=== PATIENT | male | born 1965 | race Two or more races ===

== ENCOUNTER 2025-01-17 10:30 | Outpatient (RCR) | payer MEDICAID, SELFPAY ==
--- NOTE | 2025-01-11 10:16 | PTNOTE_ITS ---
PT OP Initial Eval Patient Information Outpatient Physical Therapy Treatment Date: 01/11/25 Visit Reasons: Absence of RT leg above knee Medical Diagnosis: Z97.13 Z89.611 Treatment Dx #1: Gait abnormality Treatment Dx #2: Balance impairment Start of Care: 01/11/25 Date of Onset: 01/2024 Smoking Status Smoking Status: Never smoker Initial Assessment Subjective: Pt is 59 yr old macedonian speaking male s/p R above knee amputation presents ambulating with articulating knee and B axillary crutches. Pt reports decreased balance and difficulty ambulating more than 30 mins. PMH: DM type 2 Pt goal: to walk better without crutches Objective: R hip strength: Flexion: 4/5 Abduction: 4/5 Gait: step through with forward trunk flexion and he locks the knee into extension, poor weight shift to R, decreased stance time on R Assessment: Pt presents with decreased WB and weight shifting and stance time on R with crutches. He can ambulate in parallel bars with hands on bars and he gets to mid stance with R foot and then quickly advances the L to avoid the knee from flexing. The knee prosthesis articulates and he doesn't trust it to stand extended in stance phase. He may benefit from a slower flexion or more resistance into flexion adjustment of the prosthesis. If he locks it into extension he vaults the LE on the R to clear the foot. Pt requires skilled therapy to meet goals and has good rehab potential. Short Term and Shelter Goals 1. Ind with HEP 2. Pt will ambulate with cane and good balance and weight shifting to the R LE x community distances 3. Pt will ambulate with almost symmetrical stance time and step length R/L x100' Treatment Plan ? 1. Manual therapy ? 2. Therex ? 3. Modalities as indicated, moist heat, ice, estim Frequency and Duration: 2x a week for 12 sessions plus the evaluation. We will need provider's signature on this evaluation and more authorized visits to continue with therapy past the 4 visits that were authorized. Certification Dates: 01/11/25 to 04/11/25 Procedure Charges OP PT Eval Mod Complex 30 minutes: Yes
--- NOTE | 2025-01-17 13:42 | PT.ODAYNRPT ---
PT Outpatient Daily Note OP Daily Note Outpatient Physical Therapy Treatment Date: 01/17/25 Visit Reasons: Absence of RT leg above knee Subjective: Pt reports he is doing well and is now ambulating with bilateral lofstrand crutches. Objective: See F/S for therex performed Assessment: Demo'd good tolerance with weight shifts laterally, forward/backward, and in staggered stance. Performed best with mirror feedback due to Lt lateral lean as he was not weight bearing through Rt prosthetic LE. Required mod vc's and tc's to Rt hip to weight shift through prosthetic LE while ambulating. Plan: Continue with POC Procedure Charges Therapeutic Exercise 30 minutes: Yes
== END 2025-01-17 23:59 | disposition home or self-care (01) ==
LOC: CPTX 10:30
PROVIDERS: PCP Physician Assistant; Referring Provider Physician Assistant; Visit Provider Physician Assistant
DX: R26.2 Difficulty in walking, not elsewhere classified (principal); R26.89 Other abnormalities of gait and mobility; Z89.611 Acquired absence of right leg above knee; Z97.13 Presence of artificial right leg (complete) (partial); E11.9 Type 2 diabetes mellitus without complications
CPT/HCPCS: 97110; 97162

== ENCOUNTER 2025-01-30 09:30 | Outpatient (RCR) | payer MEDICAID, SELFPAY ==
--- NOTE | 2025-01-19 11:06 | PT.ODAYNRPT ---
PT Outpatient Daily Note OP Daily Note Outpatient Physical Therapy Treatment Date: 01/19/25 Visit Reasons: above knee amputation Subjective: Pt arrived using one lofstrand crutch with L UE with left lateral lean, stating he has been trying to ambulate with one since yesterday. Reports he fell two days ago. Objective: See F/S for therex performed Assessment: Performed best with vc's and tc's to wt shift onto prosthetic limb before advancing sound limb; educated wt shift should come from hips and should avoid forward trunk lean. Improvement with wt sifts and gait with mirror to provide visual feedback with any trunk lean, pt able to self correct and return to midline. Advised to use 2 lofstrand crutches until balance and gait improve. Plan: Continue with POC Length of Time (minutes) of Treatment: 30 Minutes Procedure Charges Therapeutic Exercise 30 minutes: Yes
--- NOTE | 2025-01-24 18:03 | PT.ODAYNRPT ---
PT Outpatient Daily Note OP Daily Note Outpatient Physical Therapy Treatment Date: 01/24/25 Visit Reasons: above knee amputation Subjective: Ambulating with B Lofstrand crutches Objective: See f/S for therex Assessment: He ambulates with more stability and step length with the knee prosthesis locked in extension. Plan: Continue per POC Length of Time (minutes) of Treatment: 30 Minutes Procedure Charges Therapeutic Exercise 30 minutes: Yes
--- NOTE | 2025-01-30 12:28 | PT.ODS1RPT ---
PT OP Progress/Discharge Note Date of Service: 01/30/25 Progress Note/DC Note Progress Note/Discharge Note: Progress Note Patient Information Visit Reasons: above knee amputation Service Continue Service or Discharge: Continue Service Status Subjective: Ambulating with B Lofstrand crutches Objective: See f/S for therex Gait: step through with B crutches and fair weight shift to the R LE R hip strength: Flexion: 4/5 Abduction: 4+/5 Assessment: Pt attended the 07/22 Rx sessions per the provider's order and authorization with good progress with therapy goals. He ambulates with more stability and step length with the knee prosthesis locked in extension which allows for longer step length on L since he doesn't like to stand on R LE past mid-stance with prosthesis unlocked. He is using B Lofstrand crutches now which is stable but he wants to use a cane and eventually no assistive device which may or may not be safe depending on progress. He would benefit from continued therapy to work toward this goal. Plan: Request additional authorized visits x8 to continue per POC to 12 Rx sessions plus the evaluation Procedure Charges Therapeutic Exercise 30 minutes: Yes
== END 2025-02-17 23:59 | disposition home or self-care (01) ==
LOC: CPTX 09:30
PROVIDERS: PCP Physician Assistant; Referring Provider Physician Assistant; Visit Provider Physician Assistant
DX: R26.89 Other abnormalities of gait and mobility (principal); E11.9 Type 2 diabetes mellitus without complications; Z97.13 Presence of artificial right leg (complete) (partial); Z89.611 Acquired absence of right leg above knee
CPT/HCPCS: 97110

== ENCOUNTER 2025-04-17 17:01 | Emergency (ER) | payer MEDICAID, SELFPAY ==
[2025-04-17 17:17] VITALS: BP 95/55; PULSE 87; RESP 20; TEMP 36.9; O2SAT 99
--- NOTE | 2025-04-17 17:26 | XR_ITS ---
EXAMINATION: PA chest single view TECHNIQUE: Upright PA chest single view Date and time: April 17, 2025, 1803 hours INDICATIONS: Shortness of breath beginning 3 days ago. FINDINGS: Normal heart size Lungs are clear. Intact osseous structures IMPRESSION: No active disease
--- NOTE | 2025-04-17 17:26 | PD.EDRME ---
Rapid Medical Screening Exam RME Arrival date/time: 04/17/25 17:01 60-year-old male with a history of type 2 diabetes presents to the emergency room with a chief complaint of cough, congestion, fevers x 3 days I have greeted and performed a focused initial assessment of this patient. A comprehensive ED assessment and evaluation of the patient, analysis of all test results, and completion of the medical decision making process will be conducted by additional ED providers. Chief Complaint: Flu Like Symptoms Vital signs: Vital Signs Temperature 98.4 F 04/17/25 17:17 Pulse Rate 87 04/17/25 17:17 Respiratory Rate 20 04/17/25 17:17 Blood Pressure 95/55 L 04/17/25 17:17 Pulse Oximetry (%) 99 04/17/25 17:17 Oxygen Delivery Method Room Air 04/17/25 17:17 Vital signs reviewed by provider: Yes Exam: Clear bilateral lung sounds Strong and regular rhythm Clinical Impression: URI versus community-acquired pneumonia
--- NOTE | 2025-04-17 21:17 | PD.EDURI ---
Upper Respiratory Inf. RME/HPI General Chief Complaint: Flu Like Symptoms Stated Complaint: RUNNY NOSE, WATERY EYES, COUGH Time Seen by Provider: 04/17/25 21:17 Arrival date/time: 04/17/25 17:01 RME / HPI RME / HPI Narrative: 04/17/25 17:01 60-year-old male with a history of type 2 diabetes presents to the emergency room with a chief complaint of cough, congestion, fevers x 3 days I have greeted and performed a focused initial assessment of this patient. A comprehensive ED assessment and evaluation of the patient, analysis of all test results, and completion of the medical decision making process will be conducted by additional ED providers. Dr. Fraser?s Main ED Evaluation: 60yo male presents to the ED for complaints of cough and congestion x 4 days. No fever, chills, N/V, chest pain, abdominal pain, or any other associated symptoms. No recent sick exposures. NKA. Related Data Home Medications ?Medication ?Instructions ?Recorded ?Confirmed insulin glargine-yfgn 100 unit/mL 35 unit subcut QDAY 01/22/23 01/22/23 (3 mL) subcutaneous pen (Semglee (insulin glargine-yfgn) Pen) sitagliptin phosphate 50 1 tab PO QDAY 01/22/23 01/22/23 mg-metformin 500 mg tablet (Janumet) Previous Rx's ?Medication ?Instructions ?Recorded dextromethorphan 5 mg-guaifenesin 20 ml PO Q4H PRN cough #118 mL 04/17/25 50 mg/5 mL oral liquid (Robitussin Cough-Chest Congestion DM) Allergies Allergy/AdvReac Type Severity Reaction Status Date / Time No Known Allergies Allergy Verified 04/17/25 17:06 Review of Systems Review of Systems Systems Reviewed: All systems reviewed, normal except as documented ED Exam Narrative Physical exam: Generally patient is alert and in no obvious distress, heart regular rate and rhythm, lungs clear to auscultation equal bilaterally, abdomen soft bowel sounds present nontender, extremities show no edema, neurologic exam showed [place] Coma Scale of 15 Course Course Course Narrative: CXR is ordered for determining the etiology of cough. Quality Measures none Orders Category Date Time Status Bedside COVID-19 Antigen Test NOW Care 04/17/25 17:26 Active Bedside Influenza A&B Antigen Test NOW Care 04/17/25 17:26 Completed XR chest 1V portable Stat Exams 04/17/25 17:26 Completed Vital Signs Vital signs: Vital Signs Temperature 98.4 F 04/17/25 17:17 Pulse Rate 87 04/17/25 17:17 Respiratory Rate 20 04/17/25 17:17 Blood Pressure 95/55 L 04/17/25 17:17 Pulse Oximetry (%) 99 04/17/25 17:17 Oxygen Delivery Method Room Air 04/17/25 17:17 Upper Respiratory Infection MDM Narrative MDM Narrative:: Scribe Attestation: 04/17/25 - Brittany, Meryl Agarwal am scribing for and in the presence of Dr. Fraser. Patient originally was somewhat hypotensive with a systolic blood pressure of 95. That will be retaken prior to discharge. All other vital signs are stable. Flu swabs and COVID swab are negative. Chest x-ray was clear. Patient is stable for discharge. Patient data External records reviewed:: [facility] previous records (Per chart review, patient has no previous ED visits or admissions to this facility.) Clinical information provided by:: patient Social determinants that could affect healthcare access:: none Patient has the following chronic illnesses:: DM, HLD How is presenting disease/condition affected by chronic disease/condition?: uneffected by Evaluation data The following diagnostics were reviewed and interpreted by me:: lab results and radiology exam(s) Lab and/or radiology exams considered but not ordered:: none Interpretation Summary: [employer] [facility] Report Signed Patient: PETER GAN Record#: [id number] Birthdate: 1965 Age/Sex: 60 / M Location: [facility] Attending Dr: Ordering Physician: Junior Marcum Date of Service: 04/17/25 Procedure(s): XR chest 1V portable Accession Number(s): [id number] cc: Junior Marcum; Raj Kunz PA-C; Gurwinder Garcia MD~ EXAMINATION: PA chest single view TECHNIQUE: Upright PA chest single view Date and time: April 17, 2025, 1803 hours INDICATIONS: Shortness of breath beginning 3 days ago. FINDINGS: Normal heart size Lungs are clear. Intact osseous structures IMPRESSION: No active disease Dictated By: Gurwinder Garcia MD Signed By: <Electronically signed by Gurwinder Garcia MD in OV> 04/17/25 1818 Medications / Prescriptions Medications or Prescriptions considered but not ordered:: none Medication administrations:: none Consultations Consultation(s) initiated? (list below): No Diagnosis Upper Respiratory Differential Diagnosis: other (See MDM) Most likely diagnosis given after review of the tests above:: see clinical impression below Admission Indicated Admission indicated?: not indicated Admission Request Was there a request for admission?: No Disposition Plan Disposition Plan: Discharge Discharge Attestation Discharge Attestation: The patient and all family members were given an opportunity to ask questions and understood the discharge instructions. Discharge instructions specifically effects, indications for sooner follow up or return to the emergency department, and the expected course of current diagnosis. Patient condition: Stable Discharge Plan Plan Patient Disposition: HOME (Self Care) Prescriptions/Referrals Prescriptions/Med Rec: New Robitussin Cough-Chest [place] DM 5-50 mg/5 mL liquid 20 ml PO Q4H PRN (Reason: cough) Qty: 118 0RF No Action Janumet 50-500 mg Tablet 1 tab PO QDAY insulin glargine-yfgn [Semglee(insulin glarg-yfgn)Pen] 100 unit/mL (3 mL) insulin pen 35 unit SUBCUT QDAY Patient Comments: INJECT 35 UNITS SUBCUTANEOUS ONCE A DAY 90 DAYS Referrals: Raj Kunz PA-C [Primary Care Provider] - In 1 week Problem List Clinical Impression: Viral syndrome Patient/Caregiver Discharge Instructions Education Materials: ED Viral Syndrome (Adult) Additional Instructions: Cough medicine as prescribed. Follow-up with your doctor. Return to ER as needed or if condition worsens. Print Language: Ecuadorean Stand Alone Forms: [facility] Award Info., Patient Portal Info Letter
[2025-04-17 21:41] VITALS: PULSE 78; O2SAT 99
== END 2025-04-17 21:41 | disposition home or self-care (01) ==
PROVIDERS: Emergency Provider Emergency Medicine; PCP Physician Assistant
DX: B34.9 Viral infection, unspecified (principal)
CPT/HCPCS: 71045; 87502; 87635; 99282

== ENCOUNTER 2025-04-19 11:00 | Outpatient (RCR) | payer MEDICAID, SELFPAY ==
--- NOTE | 2025-03-20 13:17 | PT.ODS1RPT ---
PT OP Progress/Discharge Note Date of Service: 03/20/25 Progress Note/DC Note Progress Note/Discharge Note: Progress Note Patient Information Visit Reasons: ABSENCE OF RT LEG KNEE Service Continue Service or Discharge: Continue Service Status Subjective: Pt reports he's ambulating with one Lofstrand crutch and knee locked in extension. Objective: See F/S for therex Gait: pt ambulates with lateral sway to the R with shorter stance phase on R Assessment: Pt ambulates with lateral sway to the R that he can partially correct with R hip posterior depression in stance phase if he walks slow. He is allowing anterior elevation of the R hip during stance phase. Plan: Continue per POC Procedure Charges Therapeutic Exercise 30 minutes: Yes
--- NOTE | 2025-03-22 12:58 | PT.ODAYNRPT ---
PT Outpatient Daily Note OP Daily Note Outpatient Physical Therapy Treatment Date: 03/22/25 Visit Reasons: ABSENCE OF RT LEG KNEE Subjective: Ambulating with B Lofstrand crutches Objective: See f/S for therex Assessment: Improved hip posterior depression with cues when he steps on R. Plan: Continue per POC Length of Time (minutes) of Treatment: 30 Minutes Procedure Charges Therapeutic Exercise 30 minutes: Yes
--- NOTE | 2025-03-27 14:11 | PT.ODAYNRPT ---
PT Outpatient Daily Note OP Daily Note Outpatient Physical Therapy Treatment Date: 03/27/25 Visit Reasons: ABSENCE OF RT LEG KNEE Subjective: Ambulating with one Lofstrand crutch in L hand Objective: See f/S for therex Assessment: Improved hip posterior depression with cues when he steps on R if he ambulates slowly Plan: Continue per POC Length of Time (minutes) of Treatment: 30 Minutes Procedure Charges Therapeutic Exercise 30 minutes: Yes
--- NOTE | 2025-03-29 11:52 | PT.ODAYNRPT ---
PT Outpatient Daily Note OP Daily Note Outpatient Physical Therapy Treatment Date: 03/29/25 Visit Reasons: ABSENCE OF RT LEG KNEE Subjective: Ambulating with one Lofstrand crutch in L hand today. He doesn't use a crutch at home but uses hands for support. Objective: See f/S for therex Assessment: Improved hip posterior depression with cues when he steps on R if he ambulates slowly. He doesn't spend as much time in stance phase on R as the L. Pt ambulates with fair balance with SPC in the parallel bars but needs more practice. Plan: Continue per POC Length of Time (minutes) of Treatment: 30 Minutes Procedure Charges Therapeutic Exercise 30 minutes: Yes
--- NOTE | 2025-04-03 12:47 | PT.ODAYNRPT ---
PT Outpatient Daily Note OP Daily Note Outpatient Physical Therapy Treatment Date: 04/03/25 Visit Reasons: ABSENCE OF RT LEG KNEE Subjective: Ambulating with one Lofstrand crutch in L hand today. He doesn't use a crutch at home but uses hands for support. Objective: See f/S for therex Assessment: Improved hip posterior depression with cues when he steps on R if he ambulates slowly. He doesn't spend as much time in stance phase on R as the L. Pt ambulates with fair balance with SPC in the parallel bars but needs more practice. Plan: Continue per POC Length of Time (minutes) of Treatment: 30 Minutes Procedure Charges Therapeutic Exercise 30 minutes: Yes
--- NOTE | 2025-04-05 12:07 | PT.ODAYNRPT ---
PT Outpatient Daily Note OP Daily Note Outpatient Physical Therapy Treatment Date: 04/05/25 Visit Reasons: ABSENCE OF RT LEG KNEE Subjective: Ambulating with one Lofstrand crutch in L hand today. He doesn't use a crutch at home but uses hands for support. Objective: See f/S for therex Assessment: He doesn't spend as much time in stance phase on R as the L due to poor SL balance. When he stands on the R without hand support he requires mod/maxAx1 to maintain balance. Pt ambulates with fair balance with SPC in the parallel bars but needs more practice. Plan: Continue per POC Length of Time (minutes) of Treatment: 30 Minutes Procedure Charges Therapeutic Exercise 30 minutes: Yes
--- NOTE | 2025-04-11 10:36 | PT.ODAYNRPT ---
PT Outpatient Daily Note OP Daily Note Outpatient Physical Therapy Treatment Date: 04/11/25 Visit Reasons: ABSENCE OF RT LEG KNEE Subjective: Pt reports he can ambulate for ~15 minutes then has to sit and rest. Pt shared that he kennedy an appointment soon to have prosthetic leg fitted/adjusted. Objective: Please see flow sheet for ther ex list. Assessment: Pt instructed on glute bridge for HEP, pt able to complete with good tolerance. Plan: Continue with poC. Length of Time (minutes) of Treatment: 30 Minutes Procedure Charges Therapeutic Exercise 30 minutes: Yes
--- NOTE | 2025-04-17 14:16 | PT.ODAYNRPT ---
PT Outpatient Daily Note OP Daily Note Outpatient Physical Therapy Treatment Date: 04/17/25 Visit Reasons: ABSENCE OF RT LEG KNEE Subjective: Pt reports he had his R prosthesis fitted last week. Pt wants to know if we are going to work on ambulating with prosthetic unlocked, shared that he used to try to ambulate with prosthetic unlocked but would have a lot of falls. Objective: Please see flow sheet for ther ex list. Assessment: Pt able to ambulate in parallel bars with prosthetic unlocked but has episodes of LOB due to knee mechanics folding when pt is trying to load. Pt educated on benefits of working on ambulation with knee unlocked and main concern is safety and avodiidng falls. The risk is to high vs the beneift for pt to ambulate with knee mechanism unlocked. Plan: Continue with poC. Length of Time (minutes) of Treatment: 30 Minutes Procedure Charges Therapeutic Exercise 30 minutes: Yes
--- NOTE | 2025-04-19 12:39 | PT.ODAYNRPT ---
PT Outpatient Daily Note OP Daily Note Outpatient Physical Therapy Treatment Date: 04/19/25 Visit Reasons: ABSENCE OF RT LEG KNEE Subjective: Pt reports he has been feeling ill so he feels weaker than usual. Objective: Please see flow sheet for ther ex list. Assessment: working on simulating stepping over objects focus on swinging prosthetic leg and step sequence. Plan: Continue withpoC. Length of Time (minutes) of Treatment: 30 Minutes Procedure Charges Therapeutic Exercise 30 minutes: Yes
== END 2025-04-19 23:59 | disposition home or self-care (01) ==
LOC: CPTX 11:00
PROVIDERS: PCP Physician Assistant; Referring Provider Physician Assistant; Visit Provider Physician Assistant
DX: R26.89 Other abnormalities of gait and mobility (principal); Z89.611 Acquired absence of right leg above knee; Z97.13 Presence of artificial right leg (complete) (partial); E11.9 Type 2 diabetes mellitus without complications
CPT/HCPCS: 97110